=== PATIENT | male | born 1970 ===

== ENCOUNTER 2017-03-07 08:55 | Emergency (ER) | payer MEDICARE, OTHER ==
[2017-03-07 09:13] VITALS: TEMP 97.9
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
[2017-03-07] MEDS ORDERED: Bacitracin 500 Units/gm Oint Foilpak UD ONE (09:35)
--- NOTE | 2017-03-07 11:03 | CT ---
PROCEDURE: CT HEAD WITHOUT CONTRAST. HISTORY: TRAUMA COMPARISON: Comparison made with prior study 12/08/2015. . TECHNIQUE: Axial computed tomography images were obtained through the head/brain without intravenous contrast. Radiation dose: Total exam DLP = 936.64 mGy-cm. This CT exam was performed using one or more of the following dose reduction techniques: Automated exposure control, adjustment of the mA and/or kV according to patient size, and/or use of iterative reconstruction technique. FINDINGS: HEMORRHAGE: No acute parenchymal, subarachnoid or extra-axial hemorrhage. BRAIN: No evidence of large acute infarct. No obvious parenchymal nor extra-axial mass or collection seen on this noncontrast study. VENTRICLES: Unremarkable. No hydrocephalus. CALVARIUM: Calvarium is intact. There appears to be some mild left posterior superior parietal scalp swelling PARANASAL SINUSES: Mild mucoperiosteal inflammatory changes seen within the ethmoid air complex extending superiorly into the frontal sinus. . There is mild localized deviation of the nasal septum from right to left with a small bone spur along the left lateral margin of the nasal septum. MASTOID AIR CELLS: Unremarkable as visualized. No inflammatory changes. OTHER FINDINGS: None. IMPRESSION: No acute intracranial hemorrhage. There appears to be mild posterior superior parietal scalp swelling. Mild mucosal thickening seen within the ethmoid and frontal sinuses.
[2017-03-07 11:24] VITALS: BP 135/80; PULSE 81; RESP 18
[2017-03-07 12:53] VITALS: O2SAT 95
== END 2017-03-07 11:23 | disposition home or self-care (01) ==
LOC: C.ER 08:55
DX: S09.90XA Unspecified injury of head, initial encounter (principal); S00.01XA Abrasion of scalp, initial encounter; V19.9XXA Pedal cyclist (driver) (passenger) injured in unspecified traffic accident, initial encounter; Z72.0 Tobacco use

== ENCOUNTER 2017-06-16 10:56 | Emergency (ER) | payer MEDICARE, OTHER ==
[2017-06-16 11:00] VITALS: TEMP 98
--- NOTE | 2017-06-16 11:47 | C.PDOC ---
History Of Present Illness 46 year old male presents to the ED with complaints of shortness of breath and dizziness after eating for three days. Patient has a pacemaker that was placed in [place] but it is unclear why. He is certain he was found unconscious but it unsure regarding details of his past medical history. Patient note some lower back pain. He denies nausea, vomiting, LOC, head trauma, headache, fever, chills, or diarrhea. Time Seen by Provider: 06/16/17 11:32 Chief Complaint (Nursing): Shortness Of Breath History Per: Patient History/Exam Limitations: no limitations Onset/Duration Of Symptoms: Days (3 days ) Current Symptoms Are (Timing): Still Present Associated Symptoms: Dizziness. denies: Fever, Chills, Leg/Calf Pain Recent travel outside of the [place]: No Past Medical History Reviewed: Historical Data, Nursing Documentation, Vital Signs Vital Signs: Last Vital Signs Temp 98 F 06/16/17 10:59 Pulse 74 06/16/17 14:55 Resp 18 06/16/17 14:55 BP 121/87 06/16/17 14:55 Pulse Ox 96 06/16/17 15:10 - Medical History PMH: Asthma, CAD, COPD (ASTHMA), Fractures, Gastrointestinal Ulcer, Seizures Surgical History: Appendectomy, Pacemaker Family History: States: Unknown Family Hx - Social History Hx Tobacco Use: Yes Hx Alcohol Use: No Hx Substance Use: No - Immunization History Hx Tetanus Toxoid Vaccination: No Hx Influenza Vaccination: No Hx Pneumococcal Vaccination: No Review Of Systems Constitutional: Negative for: Fever, Chills Cardiovascular: Negative for: Chest Pain, Palpitations Respiratory: Positive for: Shortness of Breath. Negative for: Cough Physical Exam - Physical Exam Appears: Non-toxic, No Acute Distress Skin: Warm, Dry Head: Atraumatic, Normacephalic Eye(s): bilateral: Normal Inspection, PERRL, EOMI Oral Mucosa: Moist Neck: Supple Chest: Symmetrical, No Deformity, No Tenderness, Other (pacemaker at left upper chest wall ) Cardiovascular: Rhythm Regular, No Murmur Respiratory: Normal Breath Sounds, No Rales, No Rhonchi, No Wheezing Gastrointestinal/Abdominal: Soft, Tenderness (LLQ tenderness ), No Distention, No Guarding, No Rebound Back: No CVA Tenderness, No Vertebral Tenderness, No Paraspinal Tenderness Extremity: Normal ROM, No Tenderness, No Pedal Edema, No Calf Tenderness, Capillary Refill (good capillary refill, less than two seconds ), No Deformity, No Swelling Neurological/Psych: Oriented x3, Normal Speech, Normal Cognition, Normal Motor, Normal Sensation ED Course And Treatment - Laboratory Results Result Diagrams: 06/16/17 11:52 06/16/17 11:52 ECG: Interpreted By Me, Viewed By Me ECG Rhythm: Sinus Rhythm Interpretation Of ECG: No ST elevations or depressions Rate From EC O2 Sat by Pulse Oximetry: 96 (room air ) - Radiology CXR: Interpreted by Me, Viewed By Me CXR Interpretation: Yes: No Acute Disease Nexus Criteria: Negative Progress Note: EKG, CXR, UA, and blood work was ordered. Upon re-evaluation, patient states he is feeling fine and has agreed to follow up outpatient. Medical Decision Making Medical Decision Making: Labs wnl, Patient feeling well, will d/c Disposition Counseled Patient/Family Regarding: Studies Performed, Need For Followup, Rx Given - Disposition Disposition: HOME/ ROUTINE Disposition Time: 14:20 Condition: STABLE Additional Instructions: Follow up with your doctor as soon as possible. Return to the Emergency Department if symptoms persist. Prescriptions: Famotidine [Pepcid] 1 tab PO BID #30 tab Instructions: Gastritis (ED) Forms: Gen Discharge Inst Bruneian, [facility] (Bruneian) - POA Present On Arrival: None - Clinical Impression Clinical Impression: Gastritis - Scribe Statement The provider has reviewed the documentation as recorded by the Scribe Anahy Sanders All medical record entries made by the Scribe were at my direction and personally dictated by me. I have reviewed the chart and agree that the record accurately reflects my personal performance of the history, physical exam, medical decision making, and the department course for this patient. I have also personally directed, reviewed, and agree with the discharge instructions and disposition.
[2017-06-16 11:55] LABS: BASO # 0.1 K/uL (0.0-0.2); BASO % 1.2 % (0.0-2.0); EOS # 0.3 K/uL (0.0-0.7); HEMATOCRIT 47.5 % (35.0-51.0); LYMPH # 1.7 K/uL (1.0-4.3); LYMPH % 34.1 % (20.0-40.0); MEAN CELL VOLUME 88.9 fL (80.0-94.0); MEAN CORPUSCULAR HGB CONC 34.9 g/dL (33.0-37.0); MEAN PLATELET VOLUME 8.4 fL (7.2-11.7); MONO # 0.5 K/uL (0.0-0.8); MONO % 10.6 % (0.0-10.0); RED CELL DISTRIBUTION WIDTH 13.4 % (11.5-14.5)
[2017-06-16 12:07] LABS: ALB/GLOB RATIO 1.5 (1.0-2.1); ALKALINE PHOSPHATASE 57 U/L (38-126); ALT/SGPT 43 U/L (21-72); AST/SGOT 28 U/L (17-59); BILIRUBIN,TOTAL 0.5 mg/dL (0.2-1.3); BLOOD UREA NITROGEN 13 mg/dL (9-20); CALCIUM 9.5 mg/dl (8.6-10.4); CARBON DIOXIDE 30 mmol/L (22-30); CHLORIDE 98 mmol/L (98-107); GFR AFRICAN-AMERICAN > 60; GLUCOSE,RANDOM 78 mg/dL (75-110); POTASSIUM 4.3 mmol/L (3.6-5.2); SODIUM 140 mmol/L (132-148); TOTAL PROTEIN 7.3 g/dL (6.3-8.3)
[2017-06-16 12:37] LABS: RBC URINE < 1 /hpf (0-3); URINE BACTERIA OCC (<OCC); URINE BILIRUBIN NEGATIVE (NEGATIVE); URINE BLOOD NEGATIVE (NEGATIVE); URINE COLOR Yellow (YELLOW); URINE GLUCOSE (UA) NORMAL (Normal); URINE KETONE NEGATIVE (NEGATIVE); URINE LEUKOCYTE ESTERASE NEG Leu/uL (Negative); URINE PROTEIN NEGATIVE (NEGATIVE); URINE UROBILINOGEN NORMAL mg/dL (0.2-1.0); WBC URINE < 1 /hpf (0-5)
[2017-06-16 13:31] VITALS: RESP 18
--- NOTE | 2017-06-16 13:49 | RAD ---
PROCEDURE: CHEST RADIOGRAPH, 1 VIEW HISTORY: chest pain COMPARISON: Comparison is made to 10/24/2011 FINDINGS: LUNGS: No evidence of new infiltrate or consolidation in the lungs. PLEURA: No pneumothorax or pleural fluid seen. CARDIOVASCULAR: The cardiac silhouette is normal in size. Single wire left-sided pacemaker/ AICD is seen in place. OSSEOUS STRUCTURES: No significant abnormalities. VISUALIZED UPPER ABDOMEN: Normal. OTHER FINDINGS: None. IMPRESSION: No active disease.
[2017-06-16 14:56] VITALS: BP 121/87; PULSE 74
[2017-06-16 15:09] VITALS: O2SAT 96
--- NOTE | 2017-06-17 12:48 | CARD ---
APPROVED REPORT EKG Measurement Heart [id number] CO [id number] <Conclusion> Normal sinus rhythm Minimal voltage criteria for LVH, may be normal variant Borderline ECG
== END 2017-06-16 14:56 | disposition home or self-care (01) ==
LOC: C.ER 10:56
DX: K29.70 Gastritis, unspecified, without bleeding (principal)
CPT/HCPCS: 71010; 80053; 81001; 83880; 84484; 85025; 93005; 96374; 99285; G0480

== ENCOUNTER 2018-01-29 09:50 | Emergency (ER) | payer MEDICARE, MEDICAID ==
[2018-01-29 09:58] VITALS: RESP 18
[2018-01-29 11:03] VITALS: BP 107/78; PULSE 85; TEMP 98; O2SAT 95
--- NOTE | 2018-01-29 11:11 | RAD ---
HISTORY: Cough COMPARISON: Comparison chest 06/16/2017 TECHNIQUE: Chest PA and lateral FINDINGS: LUNGS: The interstitial markings are increased and coarsened within few scattered peribronchial cuffing changes. Findings could represent sequela of reactive/inflammatory airway disease or viral illness however the possibility of mild chronic compensated venous congestion not excluded. PLEURA: No significant pleural effusion identified. No pneumothorax apparent. CARDIOVASCULAR: Heart size normal. No change single lead pacemaker/ defibrillator OSSEOUS STRUCTURES: No significant abnormalities. VISUALIZED UPPER ABDOMEN: Normal. OTHER FINDINGS: None. IMPRESSION: The interstitial markings are increased and coarsened within few scattered peribronchial cuffing changes. Findings could represent sequela of reactive/inflammatory airway disease or viral illness however the possibility of mild chronic compensated venous congestion not excluded.
--- NOTE | 2018-01-29 15:54 | C.PDOC ---
History Of Present Illness 47 year old male presents to the ER with a complaint of diffuse lower back pain for the past 3 days, associated with dry cough and subjective fever. Denies chest pain, SOB, bladder/bowel incontinence, or saddle anesthesia. Chief Complaint (Nursing): Back Pain History Per: Patient History/Exam Limitations: no limitations Onset/Duration Of Symptoms: Days Current Symptoms Are (Timing): Still Present Quality Of Discomfort: Unable To Describe Previous Symptoms: None Associated Symptoms: None Exacerbating Factor(s): Nothing Recent travel outside of the [place]: No Past Medical History Reviewed: Historical Data, Nursing Documentation, Vital Signs Vital Signs: Last Vital Signs Temp 98.0 F 01/29/18 11:02 Pulse 85 01/29/18 11:02 Resp 18 01/29/18 11:02 BP 107/78 01/29/18 11:02 Pulse Ox 95 01/29/18 15:56 - Medical History PMH: Asthma, CAD, COPD (ASTHMA), Fractures, Gastrointestinal Ulcer, Seizures Surgical History: Appendectomy, Pacemaker Family History: States: Unknown Family Hx - Social History Hx Tobacco Use: Yes Hx Alcohol Use: No Hx Substance Use: No - Immunization History Hx Tetanus Toxoid Vaccination: No Hx Influenza Vaccination: No Hx Pneumococcal Vaccination: No Review Of Systems Constitutional: Positive for: Fever (Subjective) Cardiovascular: Negative for: Chest Pain Respiratory: Positive for: Cough. Negative for: Shortness of Breath Genitourinary: Negative for: Incontinence Musculoskeletal: Positive for: Back Pain Neurological: Negative for: Weakness, Numbness Physical Exam - Physical Exam Appears: Non-toxic, No Acute Distress Skin: Normal Color, Warm, Dry Head: Atraumatic, Normacephalic Eye(s): bilateral: Normal Inspection Ear(s): Bilateral: Normal Nose: Normal Oral Mucosa: Moist Throat: Normal, No Erythema, No Exudate Neck: Normal, Supple Chest: Symmetrical, No Tenderness Cardiovascular: Rhythm Regular Respiratory: Normal Breath Sounds, No Rales, No Rhonchi, No Wheezing Back: No Vertebral Tenderness, No Paraspinal Tenderness Neurological/Psych: Oriented x3, Normal Speech, Normal Motor, Normal Sensation ED Course And Treatment O2 Sat by Pulse Oximetry: 95 (Room air) Pulse Ox Interpretation: Normal Progress Note: CXR ordered. Disposition - Disposition Referrals: Laisha Quinones, [Non-Staff] - Disposition: HOME/ ROUTINE Disposition Time: 10:50 Condition: GOOD Additional Instructions: Thank you for letting us take care of you today. The emergency medical care you received today was directed at your acute symptoms. If you were prescribed any medication, please fill it and take as directed. It may take several days for your symptoms to resolve. Return to the Emergency Department if your symptoms worsen, do not improve, or if you have any other problems. Please contact your doctor or call one of the physicians/clinics you have been referred to that are listed on the Patient Visit Information form that is included in your discharge packet. Bring any paperwork you were given at discharge with you along with any medications you are taking to your follow up visit. Our treatment cannot replace ongoing medical care by a primary care provider (PCP) outside of the emergency department. Thank you for allowing the [facility] team to be part of your care today. Follow up with your doctor in 3-5 days for re-evaluation and further management. Prescriptions: Cyclobenzaprine [Cyclobenzaprine HCl] 10 mg PO Q8 PRN #20 tab PRN Reason: Muscle Spasm Ibuprofen [Motrin] 600 mg PO Q6 PRN #20 tab PRN Reason: Pain, Moderate (4-7) Instructions: Low Back Pain in Adults Forms: [employer] (Wallisian) - Clinical Impression Clinical Impression: Low back pain - Scribe Statement The provider has reviewed the documentation as recorded by the Scribe Nathaniel Garduno All medical record entries made by the Scribe were at my direction and personally dictated by me. I have reviewed the chart and agree that the record accurately reflects my personal performance of the history, physical exam, medical decision making, and the department course for this patient. I have also personally directed, reviewed, and agree with the discharge instructions and disposition.
== END 2018-01-29 11:25 | disposition home or self-care (01) ==
LOC: C.ER 09:50
DX: M54.5 Low back pain (principal)

== ENCOUNTER 2018-09-02 18:36 | Emergency (ER) | payer MEDICARE, MEDICAID ==
[2018-09-02 18:44] VITALS: BMI 28.4
[2018-09-02 18:53] VITALS: O2SAT 98
--- NOTE | 2018-09-02 19:53 | C.PDOC ---
History Of Present Illness 48 year old male presents to the ED c/o dizziness that started today. Patient now reports he feels much getter, no longer dizzy. Patient denies fever, chills, visual changes, headache, slurred speech, weakness, numbness, CP, SOB, nausea, vomit, rash, injury, fall, trauma. Time Seen by Provider: 09/02/18 19:52 Chief Complaint (Nursing): Dizziness/Lightheaded History Per: Patient History/Exam Limitations: no limitations Onset/Duration Of Symptoms: Days Current Symptoms Are (Timing): Still Present Activity At Onset Of Symptoms: Lying Associated Symptoms Preceding Syncopal Episode: No Predromal Symptoms (Sudden Onset) Seizure Or Post-ictal Symptoms: None Fall Associated With With Symptoms: No Severity: None Recent travel outside of the [place]: No Additional History Per: Patient Past Medical History Reviewed: Historical Data, Nursing Documentation, Vital Signs Vital Signs: Last Vital Signs Temp 98.4 F 09/02/18 18:45 Pulse 90 09/02/18 18:45 Resp 18 09/02/18 18:45 BP 130/88 09/02/18 18:45 Pulse Ox 98 09/02/18 18:45 - Medical History PMH: Asthma, CAD, COPD, Fractures, Gastrointestinal Ulcer, Hypercholesterolemia, Seizures (JUVENILE) Surgical History: Appendectomy, Pacemaker (LEFT CHEST WALL) Family History: States: Unknown Family Hx - Social History Hx Tobacco Use: Yes Hx Alcohol Use: No Hx Substance Use: No - Immunization History Hx Tetanus Toxoid Vaccination: No Hx Influenza Vaccination: No Hx Pneumococcal Vaccination: No Review Of Systems Constitutional: Negative for: Fever, Chills Cardiovascular: Negative for: Chest Pain Respiratory: Negative for: Cough, Shortness of Breath Gastrointestinal: Negative for: Nausea, Vomiting, Abdominal Pain Skin: Negative for: Rash Neurological: Negative for: Weakness, Numbness, Headache, Dizziness Physical Exam - Physical Exam Appears: Non-toxic, No Acute Distress Skin: Warm, Dry Head: Normacephalic Eye(s): bilateral: Normal Inspection, PERRL, EOMI, Other (no nystagmus) Oral Mucosa: Moist Neck: Supple Chest: Symmetrical Cardiovascular: Rhythm Regular Respiratory: No Rales, No Rhonchi, No Wheezing Gastrointestinal/Abdominal: Soft, No Tenderness, No Guarding, No Rebound Extremity: Normal ROM Extremity: Bilateral: Atraumatic, Normal Color And Temperature, Normal ROM Neurological/Psych: Oriented x3, Normal Speech, Normal Cognition, Normal Motor, Normal Sensation, Romberg (negative), Other (non focal) Gait: Steady ED Course And Treatment ECG: Interpreted By Me, Viewed By Me ECG Rhythm: Sinus Rhythm (87), Nonspecific Changes O2 Sat by Pulse Oximetry: 98 (ON RA) Pulse Ox Interpretation: Normal - Radiology CXR: Interpreted by Me, Viewed By Me Progress Note: Patient refused labs, work up. wants to be D/C Against Medical Advice - AMA Patient Left Against Medical Advice: The patient declines admission to the hospital and wishes to leave the Emergency Department. This action is against my medical advice. This decision was made with informed refusal. The patient was told that admission to the hospital is necessary. Explanation of the reasons why were discussed. The risks of leaving were explained to the patient and include, but are not limited to, worsening of known or currently unknown conditions, permanent disability and from undiagnosed or untreated conditions. The patient has the capacity to make this informed decision and understands my explanation of the current medical problem and risks of leaving. The patient voluntarily accepts these risks and signed an AMA form documenting our conversation. The patient was given the opportunity to ask questions and reconsider. The patient was encouraged to return to the Emergency Department at any time for further care. Disposition Counseled Patient/Family Regarding: Studies Performed, Diagnosis, Need For Followup, Rx Given - Disposition Referrals: [facility] [Outside] [facility] [Outside] Disposition: AGAINST MEDICAL ADVICE Disposition Time: 19:53 Condition: FAIR Additional Instructions: Please return if symptoms recur Prescriptions: Meclizine [Antivert] 25 mg PO TID #21 tab Instructions: Vertigo (a Type of Dizziness) Forms: [employer] (Andorran) Print Language: LATVIAN - Clinical Impression Clinical Impression: Dizziness - Scribe Statement The provider has reviewed the documentation as recorded by the Scribe Darrel Glez All medical record entries made by the Scribe were at my direction and personally dictated by me. I have reviewed the chart and agree that the record accurately reflects my personal performance of the history, physical exam, medical decision making, and the department course for this patient. I have also personally directed, reviewed, and agree with the discharge instructions and disposition.
[2018-09-02 20:33] VITALS: BP 122/84; PULSE 82; RESP 16; TEMP 98.8
[2018-09-02 20:40] LABS: URINE BILIRUBIN NEGATIVE (NEGATIVE); URINE BLOOD NEGATIVE (NEGATIVE); URINE CLARITY Clear (Clear); URINE COLOR Yellow (YELLOW); URINE GLUCOSE (UA) NORMAL (Normal); URINE LEUKOCYTE ESTERASE NEG Leu/uL (Negative); URINE PROTEIN NEGATIVE (NEGATIVE); URINE UROBILINOGEN NORMAL mg/dL (0.2-1.0)
== END 2018-09-02 20:33 | disposition left against medical advice (07) ==
LOC: C.ER 18:36
DX: R42 Dizziness and giddiness (principal); I25.10 Atherosclerotic heart disease of native coronary artery without angina pectoris; J44.9 Chronic obstructive pulmonary disease, unspecified; E78.00 Pure hypercholesterolemia, unspecified; Z95.0 Presence of cardiac pacemaker; F17.210 Nicotine dependence, cigarettes, uncomplicated

== ENCOUNTER 2018-11-19 13:54 | Emergency (ER) | payer MEDICARE, MEDICAID ==
[2018-11-19 13:54] VITALS: BMI 28.4
[2018-11-19 14:06] VITALS: TEMP 97.9
[2018-11-19] MEDS ORDERED: Sodium Chloride 0.9% 1,000 ML IV STA (15:05)
[2018-11-19] MEDS ORDERED: SODIUM CHLORIDE 0.9% IV STA (15:05)
[2018-11-19] MEDS ORDERED: LIDOCAINE IV STA (15:05)
--- NOTE | 2018-11-19 15:05 | C.PDOC ---
History Of Present Illness 48 year old male presents to the ED for evaluation of intermittent left flank and LLQ pain for 3 days. Denies fever, chills, hematuria, and any other associated symptoms. PMHx: (-) renal colic. (-) chronic back pain. L FLANK/LLQ PAIN X 3 DAYS. INTERMIT. NO FEVER, NV, HEMATURIA . DENIES PRIOR HO RENAL COLIC. DENIES HO CHRONIC BACK PAIN EXAM MILD DIST NONTOXIC ABD NEG NO CVAT REMIANDER NEG Time Seen by Provider: 11/19/18 14:49 Chief Complaint (Nursing): Male Genitourinary History Per: Patient History/Exam Limitations: no limitations Onset/Duration Of Symptoms: Days (x3) Current Symptoms Are (Timing): Still Present Location Of Pain/Discomfort: LLQ, Other (left flank pain. ) Recent travel outside of the [place]: No Past Medical History Reviewed: Historical Data, Nursing Documentation, Vital Signs Vital Signs: Last Vital Signs Temp 97.9 F 11/19/18 14:02 Pulse 99 H 11/19/18 14:02 Resp 20 11/19/18 14:02 BP 141/77 11/19/18 14:02 Pulse Ox 97 11/19/18 14:02 - Medical History PMH: Asthma, CAD, COPD, Fractures, Gastrointestinal Ulcer, Hypercholesterolemia, Seizures (JUVENILE) Surgical History: Appendectomy, Pacemaker (LEFT CHEST WALL) Family History: States: Unknown Family Hx - Social History Hx Tobacco Use: Yes Hx Alcohol Use: No Hx Substance Use: No - Immunization History Hx Tetanus Toxoid Vaccination: No Hx Influenza Vaccination: No Hx Pneumococcal Vaccination: No Review Of Systems Except As Marked, All Systems Reviewed And Found Negative. Constitutional: Negative for: Fever, Chills Gastrointestinal: Positive for: Abdominal Pain (LLQ + Left flank pain. ). Negative for: Other ((-) hematuria.) Physical Exam - Physical Exam Appears: Non-toxic, Other (mild distress. ) Skin: Warm, Dry Head: Atraumatic, Normacephalic Eye(s): bilateral: Normal Inspection Oral Mucosa: Moist Neck: Normal ROM Chest: Symmetrical, No Deformity Cardiovascular: Rhythm Regular, No Murmur Respiratory: Normal Breath Sounds, No Rales, No Rhonchi, No Wheezing, No Other (NARD) Gastrointestinal/Abdominal: Normal Exam, Soft, No Tenderness Back: No CVA Tenderness, No Other ((-) CVAT.) Extremity: Bilateral: Atraumatic, Normal Color And Temperature Neurological/Psych: Oriented x3, Normal Speech, Normal Cognition ED Course And Treatment - Laboratory Results Result Diagrams: 11/19/18 16:10 11/19/18 16:10 O2 Sat by Pulse Oximetry: 97 (RA) Pulse Ox Interpretation: Normal - CT Scan/US CT ABD/Pelvis Other Rad Studies (CT/US): Read By Radiologist CT/US Interpretation: FINDINGS: LOWER THORAX: Unremarkable. LIVER: Unremarkable. No gross lesion or ductal dilatation. GALLBLADDER AND BILE DUCTS: Unremarkable. PANCREAS: Unremarkable. No gross lesion or ductal dilatation. SPLEEN: Unremarkable. ADRENALS: Unremarkable. No mass. KIDNEYS AND URETERS: Unremarkable. No hydronephrosis. No solid mass. VASCULATURE: Unremarkable. No aortic aneurysm. Mild atherosclerotic calcification noted in the aorta and iliac arteries. BOWEL: Unremarkable. No obstruction. No gross mural thickening. APPENDIX: Unremarkable. Normal appendix. PERITONEUM: Unremarkable. No free fluid. No free air. LYMPH NODES: Unremarkable. No enlarged lymph nodes. BLADDER: Unremarkable. REPRODUCTIVE: Unremarkable. BONES: No acute fracture. OTHER FINDINGS: None. IMPRESSION: No CT evidence of acute pathology in the abdomen and pelvis. Reevaluation Time: 17:18 Reassessment Condition: Improved Medical Decision Making Medical Decision Making: Initial plan: -CT ABD/PELVIS w/o PO or IV Contrast -Blood sent -Flomax -Lidocaine Progress/Update: Patient stable for discharge home. Prescribed Motrin and advised to return to the ED if symptoms worsen. Disposition Counseled Patient/Family Regarding: Studies Performed, Diagnosis, Need For Followup, Rx Given - Disposition Referrals: [facility] [Outside] [facility] [Outside] Disposition: HOME/ ROUTINE Disposition Time: 17:18 Condition: IMPROVED Prescriptions: Ibuprofen [Motrin] 600 mg PO Q6 #30 tab Instructions: Low Back Pain (DC), Acute Abdomen (Belly Pain), Adult (DC) Forms: [facility] (Mongolian) - Clinical Impression Clinical Impression: Low back pain, Abdominal pain - Scribe Statement The provider has reviewed the documentation as recorded by the Scribe (Genna Graf) Provider Attestation: All medical record entries made by the Scribe were at my direction and personally dictated by me. I have reviewed the chart and agree that the record accurately reflects my personal performance of the history, physical exam, medical decision making, and the department course for this patient. I have also personally directed, reviewed, and agree with the discharge instructions and disposition.
[2018-11-19 15:39] LABS: URINE AMORPHOUS SEDIMENT RARE /ul (<OCC); URINE BACTERIA RARE (<OCC); URINE BILIRUBIN NEGATIVE (NEGATIVE); URINE BLOOD NEGATIVE (NEGATIVE); URINE CLARITY Hazy (Clear); URINE COLOR Yellow (YELLOW); URINE GLUCOSE (UA) NORMAL (Normal); URINE LEUKOCYTE ESTERASE NEG Leu/uL (Negative); URINE PROTEIN NEGATIVE (NEGATIVE); URINE UROBILINOGEN NORMAL mg/dL (0.2-1.0)
[2018-11-19] MEDS ORDERED: Sodium Chloride 0.9% 1,000 ML ONE (15:55)
[2018-11-19 16:16] LABS: BASO % 0.8 % (0.0-2.0); EOS # 0.2 K/uL (0.0-0.7); HEMOGLOBIN 15.4 g/dL (12.0-18.0); LYMPH # 2.1 K/uL (1.0-4.3); LYMPH % 34.3 % (20.0-40.0); MEAN CELL VOLUME 90.9 fL (80.0-94.0); MEAN CORPUSCULAR HEMOGLOBIN 29.9 pg (27.0-31.0); MEAN CORPUSCULAR HGB CONC 32.8 g/dL (33.0-37.0); MEAN PLATELET VOLUME 8.6 fL (7.2-11.7); MONO # 0.5 K/uL (0.0-0.8); MONO % 7.9 % (0.0-10.0); NEUT # 3.3 K/uL (1.8-7.0); RBC 5.17 Mil/uL (4.40-5.90); RED CELL DISTRIBUTION WIDTH 13.9 % (11.5-14.5); WHITE BLOOD COUNT 6.2 K/uL (4.8-10.8)
--- NOTE | 2018-11-19 16:24 | CT ---
Date of service: 11/19/2018 PROCEDURE: CT Abdomen and Pelvis without intravenous contrast HISTORY: L FLANK/LLQ PAIN COMPARISON: Comparison is made to the previous study dated 01/08/2015 TECHNIQUE: Axial and reformatted coronal and sagittal CT images of the abdomen and pelvis were obtained without IV or oral contrast administration.. Contrast dose: 0 Radiation dose: Total exam DLP = 711.28 mGy-cm. This CT exam was performed using one or more of the following dose reduction techniques: Automated exposure control, adjustment of the mA and/or kV according to patient size, and/or use of iterative reconstruction technique. FINDINGS: LOWER THORAX: Unremarkable. LIVER: Unremarkable. No gross lesion or ductal dilatation. GALLBLADDER AND BILE DUCTS: Unremarkable. PANCREAS: Unremarkable. No gross lesion or ductal dilatation. SPLEEN: Unremarkable. ADRENALS: Unremarkable. No mass. KIDNEYS AND URETERS: Unremarkable. No hydronephrosis. No solid mass. VASCULATURE: Unremarkable. No aortic aneurysm. Mild atherosclerotic calcification noted in the aorta and iliac arteries. BOWEL: Unremarkable. No obstruction. No gross mural thickening. APPENDIX: Unremarkable. Normal appendix. PERITONEUM: Unremarkable. No free fluid. No free air. LYMPH NODES: Unremarkable. No enlarged lymph nodes. BLADDER: Unremarkable. REPRODUCTIVE: Unremarkable. BONES: No acute fracture. OTHER FINDINGS: None. IMPRESSION: No CT evidence of acute pathology in the abdomen and pelvis.
[2018-11-19 16:26] LABS: ALB/GLOB RATIO 1.8 (1.0-2.1); ALBUMIN 4.4 g/dL (3.5-5.0); ALT/SGPT 23 U/L (21-72); AST/SGOT 25 U/L (17-59); BLOOD UREA NITROGEN 14 mg/dL (9-20); CALCIUM 8.9 mg/dl (8.6-10.4); GFR NON-AFRICAN AMERICAN > 60; LIPASE 84 U/L (23-300)
[2018-11-19 16:40] VITALS: BP 115/84; PULSE 74; RESP 18
[2018-11-19 17:22] VITALS: O2SAT 97
== END 2018-11-19 17:38 | disposition home or self-care (01) ==
LOC: C.ER 13:54
DX: R10.32 Left lower quadrant pain (principal); M54.5 Low back pain; E78.00 Pure hypercholesterolemia, unspecified; J44.9 Chronic obstructive pulmonary disease, unspecified; I25.10 Atherosclerotic heart disease of native coronary artery without angina pectoris; Z72.0 Tobacco use
CPT/HCPCS: 74176; 80053; 81001; 83690; 85025; 96374; 99284; J1885; J2001; J7030

== ENCOUNTER 2018-11-20 11:01 | Observation (INO) | payer MEDICARE, MEDICAID ==
[2018-11-20 11:02] VITALS: BMI 28.4
[2018-11-20 12:01] LABS: BASO % 0.8 % (0.0-2.0); EOS # 0.2 K/uL (0.0-0.7); EOS % 3.9 % (0.0-4.0); HEMOGLOBIN 15.2 g/dL (12.0-18.0); LYMPH # 1.6 K/uL (1.0-4.3); MEAN CELL VOLUME 90.8 fL (80.0-94.0); MEAN CORPUSCULAR HEMOGLOBIN 30.4 pg (27.0-31.0); MEAN CORPUSCULAR HGB CONC 33.4 g/dL (33.0-37.0); MEAN PLATELET VOLUME 8.7 fL (7.2-11.7); MONO # 0.5 K/uL (0.0-0.8); MONO % 8.8 % (0.0-10.0); NEUT # 2.9 K/uL (1.8-7.0); NEUT % 55.5 % (50.0-75.0); RBC 4.99 Mil/uL (4.40-5.90); WHITE BLOOD COUNT 5.2 K/uL (4.8-10.8)
[2018-11-20 12:11] LABS: PROTHROMBIN TIME 11.2 SECONDS (9.7-12.2)
[2018-11-20 12:23] LABS: ALBUMIN 4.2 g/dL (3.5-5.0); ALT/SGPT 23 U/L (21-72); AST/SGOT 21 U/L (17-59); BLOOD UREA NITROGEN 12 mg/dL (9-20); CALCIUM 8.4 mg/dl (8.6-10.4); GFR NON-AFRICAN AMERICAN > 60
[2018-11-20 12:38] LABS: B-TYPE NATRIURETIC PEPTIDE 111 pg/mL (0-900)
[2018-11-20] MEDS ORDERED: Morphine 4 MG/ML VIAL IV STA (12:50)
[2018-11-20] MEDS ORDERED: Morphine 4 MG/ML VIAL ONE (12:58)
--- NOTE | 2018-11-20 12:58 | C.PDOC ---
History Of Present Illness 48 year old male presents to ED with complaint of mid-sternal chest pain associated with diffuse abdominal pain since last night. He states that the chest pain is associated with slight SOB. Patient describes the pain as intermittent. He denies nausea, vomiting, diarrhea, and GI bleeding. Time Seen by Provider: 11/20/18 11:27 Chief Complaint (Nursing): Chest Pain History Per: Patient History/Exam Limitations: no limitations Onset/Duration Of Symptoms: Days (1), Intermittent Episodes Current Symptoms Are (Timing): Still Present Quality: "Pain" Associated Symptoms: Other (SOB). denies: Nausea Past Medical History Reviewed: Historical Data, Nursing Documentation, Vital Signs Vital Signs: Last Vital Signs Temp 97.9 F 11/20/18 11:07 Pulse 84 11/20/18 11:07 Resp 20 11/20/18 11:07 BP 131/83 11/20/18 11:07 Pulse Ox 98 11/20/18 11:07 - Medical History PMH: Asthma, CAD, COPD, Fractures, Gastrointestinal Ulcer, Hypercholesterolemia, Seizures (JUVENILE) Surgical History: Appendectomy, Pacemaker (LEFT CHEST WALL) Family History: States: Unknown Family Hx - Social History Hx Tobacco Use: Yes Hx Alcohol Use: No Hx Substance Use: No - Immunization History Hx Tetanus Toxoid Vaccination: No Hx Influenza Vaccination: No Hx Pneumococcal Vaccination: No Review Of Systems Constitutional: Negative for: Fever, Chills, Weakness Cardiovascular: Positive for: Chest Pain (mid-sternal chest pain). Negative for: Palpitations Respiratory: Positive for: Shortness of Breath. Negative for: Cough Gastrointestinal: Positive for: Abdominal Pain. Negative for: Nausea, Vomiting, Diarrhea Neurological: Negative for: Weakness, Numbness, Dizziness Physical Exam - Physical Exam Appears: Well, Non-toxic, No Acute Distress Skin: Normal Color, Warm, Dry, No Rash Head: Atraumatic, Normacephalic Eye(s): bilateral: Normal Inspection, PERRL, EOMI Oral Mucosa: Moist Throat: No Erythema, No Exudate Neck: Normal ROM, Supple Chest: Symmetrical, No Deformity, No Tenderness, Other (pacemaker in left upper chest) Cardiovascular: Rhythm Regular, No Friction Rub, No Murmur Respiratory: No Accessory Muscle Use, No Rales, No Rhonchi, No Stridor, No Wheezing Gastrointestinal/Abdominal: Bowel Sounds (active), Soft, Tenderness (mild tenderness in lower abdomen) Back: Normal Inspection, No CVA Tenderness Extremity: Capillary Refill (<2 seconds'), No Swelling Extremity: Bilateral: Atraumatic, Normal Color And Temperature Pulses: Left Radial: Normal, Right Radial: Normal Neurological/Psych: Oriented x3, Normal Speech, Normal Cognition ED Course And Treatment - Laboratory Results Result Diagrams: 11/20/18 11:55 11/20/18 11:55 Lab Results: PT 11.2 SECONDS (9.7-12.2) 11/20/18 11:55 INR 1.0 11/20/18 11:55 APTT 32 SECONDS (21-34) 11/20/18 11:55 Troponin I < 0.0120 ng/mL (0.00-0.120) 11/20/18 11:55 NT-Pro-B Natriuret Pep 111 pg/mL (0-900) 11/20/18 11:55 Total Bilirubin 0.3 mg/dL (0.2-1.3) 11/20/18 11:55 AST 21 U/L (17-59) 11/20/18 11:55 ALT 23 U/L (21-72) 11/20/18 11:55 Alkaline Phosphatase 64 U/L (38-126) 11/20/18 11:55 Total Protein 6.3 g/dL (6.3-8.3) 11/20/18 11:55 Albumin 4.2 g/dL (3.5-5.0) 11/20/18 11:55 Globulin 2.1 gm/dL (2.2-3.9) L 11/20/18 11:55 Albumin/Globulin Ratio 2.0 (1.0-2.1) 11/20/18 11:55 ECG: Interpreted By Me, Viewed By Me ECG Rhythm: Sinus Rhythm ECG Interpretation: Normal Interpretation Of ECG: Normal ST/T waves. Normal axis. Rate From EC O2 Sat by Pulse Oximetry: 98 (on RA) Pulse Ox Interpretation: Normal - Other Rad CXR X-Ray: Interpreted by Me, Viewed By Me Interpretation: Accession No. : [id number]. Patient Name / ID : MARYELLEN KEARNEY / [id number]. Exam Date : 11/20/2018 11:47:21 ( Approved ). Study Comment : Sex / Age : M / 48Y. Creator : Maxwell Hernandez MD. Dictator : Maxwell Hernandez MD. Atmospheric Chemist : Palliative Care Specialist : Maxwell Hernandez MD. Approver2 : Report Date : 11/20/2018 13:08:56. My Comment : * . Date of service: 11/20/2018. PROCEDURE: CHEST RADIOGRAPH, 1 VIEW. HISTORY: chest pain. COMPARISON: Comparison is made with 01/29/2018. FINDINGS: LUNGS: No evidence of new infiltrate or consolidation in the lungs. PLEURA: No pneumothorax or pleural fluid seen. CARDIOVASCULAR: No aortic atherosclerotic calcification present. Again noted is single wire pacing on the left side of the chest. OSSEOUS STRUCTURES: No significant abnormalities. VISUALIZED UPPER ABDOMEN: Normal. OTHER FINDINGS: None. IMPRESSION: No significant interval changes. - CT Scan/US CT Abdomen/Pelvis Other Rad Studies (CT/US): Interpreted By Me, Read By Radiologist CT/US Interpretation: Accession No. : [id number]. Patient Name / ID : MARYELLEN KEARNEY / [id number]. Exam Date : 11/20/2018 13:18:22 ( Approved ). Study Comment : Sex / Age : M / 48Y. Exam Date : 11/20/2018 13:18:22 ( Approved ). Study Comment : Sex / Age : M / 48Y. Creator : Maxwell Hernandez MD. Dictator : Maxwell Hernandez MD. Atmospheric Chemist : Palliative Care Specialist : Maxwell Hernandez MD. Approver2 : Report Date : 11/20/2018 14:06:51. My Comment : . Date of service: 11/20/2018. PROCEDURE: CT Abdomen and Pelvis with contrast. HISTORY: diffuse abd pain. COMPARISON: Comparison is made with 11/19/2018. TECHNIQUE: Contrast dose: 100 mL of Omnipaque 300 intravenously. Axial and reformatted coronal and sagittal CT images of the abdomen and pelvis were obtained after IV contrast administration. Radiation dose: Total exam DLP = 470.44 mGy-cm. This CT exam was performed using one or more of the following dose reduction techniques: Automated exposure control, adjustment of the mA and/or kV according to patient size, and/or use of iterative reconstruction tech nique. FINDINGS: LOWER THORAX: No evidence of acute pathology at the lung bases. No evidence of pleural effusion or pericardial effusion. Wire seen extending to the right heart. LIVER: No evidence of acute pathology or suspicious mass in the liver. GALLBLADDER AND BILE DUCTS: No evidence of acute cholecystitis. PANCREAS: Unremarkable. No gross lesion or ductal dilatation. SPLEEN: Unremarkable. ADRENALS: Unremarkable. No mass. KIDNEYS AND URETERS: Unremarkable. No hydronephrosis. No solid mass. VASCULATURE: No evidence of aortic aneurysm. Small calcification noted in the abdominal aorta. BOWEL: There are scattered large diverticula in the large bowel. No definite evidence of acute diverticulitis. No evidence of high-grade bowel obstruction. APPENDIX: No evidence of appendicitis. PERITONEUM: Unremarkable. No free fluid. No free air. LYMPH NODES: Unremarkable. No enlarged lymph nodes. BLADDER: Unremarkable. REPRODUCTIVE: The prostate is mildly to moderately enlarged. BONES: No acute fracture. OTHER FINDINGS: None. IMPRESSION: No CT evidence of cholecystitis pancreatitis or appendicitis. Scattered large colonic diverticula without evidence diverticulitis. Progress Note: CT Abdomen/Pelvis, EKG, and CXR ordered for patient. Labs ordered with troponin for patient. Patient given Morphine IV, Pepcid IVP, Zofran IVP. Medical Decision Making Medical Decision Making: The case was discussed with Dr. Powers (internal medicine) who agrees to admit the patient for Tele OBS. Disposition - Disposition Disposition: HOSPITALIZED Disposition Time: 15:00 Condition: STABLE - Clinical Impression Clinical Impression: Chest pain, Abdominal pain - PA / TREE TRIMMING SUPERVISOR / Resident Statement MD/DO has reviewed & agrees with the documentation as recorded. (Regina Tafoya) - Scribe Statement The provider has reviewed the documentation as recorded by the Scribe (Regina Tafoya) All medical record entries made by the Scribe were at my direction and personally dictated by me. I have reviewed the chart and agree that the record accurately reflects my personal performance of the history, physical exam, medical decision making, and the department course for this patient. I have also personally directed, reviewed, and agree with the discharge instructions and disposition.
[2018-11-20] MEDS ORDERED: Iohexol 300 100 ML IJ ONE (13:04)
--- NOTE | 2018-11-20 13:12 | RAD ---
Date of service: 11/20/2018 PROCEDURE: CHEST RADIOGRAPH, 1 VIEW HISTORY: chest pain COMPARISON: Comparison is made with 01/29/2018 FINDINGS: LUNGS: No evidence of new infiltrate or consolidation in the lungs. PLEURA: No pneumothorax or pleural fluid seen. CARDIOVASCULAR: No aortic atherosclerotic calcification present. Again noted is single wire pacing on the left side of the chest OSSEOUS STRUCTURES: No significant abnormalities. VISUALIZED UPPER ABDOMEN: Normal. OTHER FINDINGS: None. IMPRESSION: No significant interval changes.
--- NOTE | 2018-11-20 14:10 | CT ---
Date of service: 11/20/2018 PROCEDURE: CT Abdomen and Pelvis with contrast HISTORY: diffuse abd pain COMPARISON: Comparison is made with 11/19/2018 TECHNIQUE: Contrast dose: 100 mL of Omnipaque 300 intravenously. Axial and reformatted coronal and sagittal CT images of the abdomen and pelvis were obtained after IV contrast administration Radiation dose: Total exam DLP = 470.44 mGy-cm. This CT exam was performed using one or more of the following dose reduction techniques: Automated exposure control, adjustment of the mA and/or kV according to patient size, and/or use of iterative reconstruction technique. FINDINGS: LOWER THORAX: No evidence of acute pathology at the lung bases. No evidence of pleural effusion or pericardial effusion. Wire seen extending to the right heart. LIVER: No evidence of acute pathology or suspicious mass in the liver. GALLBLADDER AND BILE DUCTS: No evidence of acute cholecystitis. PANCREAS: Unremarkable. No gross lesion or ductal dilatation. SPLEEN: Unremarkable. ADRENALS: Unremarkable. No mass. KIDNEYS AND URETERS: Unremarkable. No hydronephrosis. No solid mass. VASCULATURE: No evidence of aortic aneurysm. Small calcification noted in the abdominal aorta. BOWEL: There are scattered large diverticula in the large bowel. No definite evidence of acute diverticulitis. No evidence of high-grade bowel obstruction APPENDIX: No evidence of appendicitis PERITONEUM: Unremarkable. No free fluid. No free air. LYMPH NODES: Unremarkable. No enlarged lymph nodes. BLADDER: Unremarkable. REPRODUCTIVE: The prostate is mildly to moderately enlarged. BONES: No acute fracture. OTHER FINDINGS: None. IMPRESSION: No CT evidence of cholecystitis pancreatitis or appendicitis. Scattered large colonic diverticula without evidence diverticulitis.
[2018-11-20] MEDS ORDERED: Albuterol HFA 90 mcg/actuation (8 g) INH PRN (16:47)
[2018-11-21 02:56] LABS: CK-MB 0.61 ng/mL (0.0-3.38)
--- NOTE | 2018-11-21 09:33 | CP.PCM.CON ---
History of Present Illness - History of Present Illness History of Present Illness: Washington Garcia PGY1, Cardio consult note for Dr Messer Pt is a 48 yo male with a PMH of having a pacemaker, 2 cardiac stents, and tobacco abuse presents to the emergency department complaining of 7/10 substernal chest pain which began earlier that day. Pt denies radiation of the pain to his arms or jaw. The pain is intermittent. Pt states that the pain is not pleuritc, and does relieved with position changes. A 12 point ROS was obtained and added to the HPI where appropriate. Past Patient History - Infectious Disease Hx of Infectious Diseases: None - Past Medical History & Family History Past Medical History?: Yes - Past Social History Smoking Status: Light Smoker < 10 Cigarettes Daily - CARDIAC Hx Hypercholesterolemia: Yes Hx Pacemaker: Yes (LEFT CHEST WALL) - PULMONARY Hx Asthma: Yes Hx Chronic Obstructive Pulmonary Disease (COPD): Yes - NEUROLOGICAL Hx Seizures: Yes (JUVENILE) - HEENT Hx HEENT Problems: No Other/Comment: Wears reading glasses - ENDOCRINE/METABOLIC Hx Endocrine Disorders: No - HEMATOLOGICAL/ONCOLOGICAL Hx Blood Disorders: No - INTEGUMENTARY Hx Dermatological Problems: No - MUSCULOSKELETAL/RHEUMATOLOGICAL Hx Fractures: Yes - GASTROINTESTINAL Hx Gastrointestinal Disorders: Yes - GENITOURINARY/GYNECOLOGICAL Hx Genitourinary Disorders: No - PSYCHIATRIC Hx Substance Use: No - SURGICAL HISTORY Hx Appendectomy: Yes - ANESTHESIA Hx Anesthesia: Yes Hx Anesthesia Reactions: No Meds Allergies/Adverse Reactions: Allergies Allergy/AdvReac Type Severity Reaction Status Date / Time No Known Allergies Allergy Verified 11/20/18 11:10 - Medications Medications: Current Medications Albuterol (Ventolin Hfa 90 Mcg/Actuation (8 G)) 1 puff INH RQ6 PRN PRN Reason: Shortness of Breath Aspirin (Ecotrin) 81 mg PO DAILY [facility] Carvedilol (Coreg) 3.125 mg PO Q12H [facility] Last Admin: 11/20/18 18:22 Dose: 3.125 mg Cyclobenzaprine HCl (Flexeril) 10 mg PO Q8 PRN PRN Reason: Muscle spasm Enoxaparin Sodium (Lovenox) 40 mg SC DAILY [facility] Ibuprofen (Motrin Tab) 600 mg PO Q6 PRN PRN Reason: Pain, moderate (4-7) Lisinopril (Zestril) 5 mg PO DAILY [facility] Meclizine HCl (Antivert) 25 mg PO TID PRN PRN Reason: Dizziness Montelukast Sodium (Singulair) 10 mg PO HS [facility] Pantoprazole Sodium (Protonix Ec Tab) 20 mg PO DAILY [facility] Pantoprazole Sodium (Protonix Ec Tab) 20 mg PO DAILY [facility] Pneumococcal Polyvalent Vaccine (Pneumovax 23 Vaccine) 0.5 ml IM .ONCE ONE Stop: 11/21/18 10:01 Rosuvastatin Calcium (Crestor) 5 mg PO HS [facility] Last Admin: 11/20/18 22:40 Dose: 5 mg Physical Exam - Constitutional Appears: No Acute Distress - Head Exam Head Exam: ATRAUMATIC, NORMOCEPHALIC - Eye Exam Eye Exam: EOMI - ENT Exam ENT Exam: Mucous Membranes Moist - Respiratory Exam Respiratory Exam: Clear to Auscultation Bilateral, NORMAL BREATHING PATTERN. absent: Accessory Muscle Use, Respiratory Distress - Cardiovascular Exam Cardiovascular Exam: RRR, +S1, +S2. absent: Diastolic murmur, Systolic Murmur - GI/Abdominal Exam GI & Abdominal Exam: Soft. absent: Tenderness - Extremities Exam Extremities exam: Positive for: full ROM, normal inspection. Negative for: calf tenderness, pedal edema - Neurological Exam Neurological exam: Alert, Oriented x3 - Psychiatric Exam Psychiatric exam: Normal Affect, Normal Mood - Skin Skin Exam: Dry, Normal Color, Warm Results - Vital Signs Recent Vital Signs: Last Vital Signs Temp 97.9 F 11/21/18 07:30 Pulse 61 11/21/18 07:30 Resp 20 11/21/18 07:30 BP 124/83 11/21/18 07:30 Pulse Ox 95 11/21/18 07:30 - Labs Result Diagrams: 11/21/18 11:29 11/21/18 11:29 Labs: Laboratory Results - last 24 hr 11/20/18 11/20/18 11/20/18 11:55 11:55 11:55 WBC 5.2 RBC 4.99 Hgb 15.2 Hct 45.3 MCV 90.8 MCH 30.4 MCHC 33.4 RDW 14.0 Plt Count 205 MPV 8.7 Neut % (Auto) 55.5 Lymph % (Auto) 31.0 Cataño % (Auto) 8.8 Eos % (Auto) 3.9 Baso % (Auto) 0.8 Neut # (Auto) 2.9 Lymph # (Auto) 1.6 [place]ata[place] # (Auto) 0.5 Eos # (Auto) 0.2 Baso # (Auto) 0.0 PT 11.2 INR 1.0 APTT 32 Sodium 133 Potassium 4.0 Chloride 102 Carbon Dioxide 26 Anion Gap 9 L BUN 12 Creatinine 0.5 L Est GFR ( Amer) > 60 Est GFR (Non-Af Amer) > 60 Random Glucose 93 Calcium 8.4 L Total Bilirubin 0.3 AST 21 ALT 23 Alkaline Phosphatase 64 Total Creatine Kinase CK-MB (Mass) Troponin I < 0.0120 NT-Pro-B Natriuret Pep 111 Total Protein 6.3 Albumin 4.2 Globulin 2.1 L Albumin/Globulin Ratio 2.0 11/20/18 11/21/18 20:05 02:00 WBC RBC Hgb Hct MCV MCH MCHC RDW Plt Count MPV Neut % (Auto) Lymph % (Auto) Cata[place] % (Auto) Eos % (Auto) Baso % (Auto) Neut # (Auto) Lymph # (Auto) [place] # (Auto) Eos # (Auto) Baso # (Auto) PT INR APTT Sodium Potassium Chloride Carbon Dioxide Anion Gap BUN Creatinine Est GFR ( Amer) Est GFR (Non-Af Amer) Random Glucose Calcium Total Bilirubin AST ALT Alkaline Phosphatase Total Creatine Kinase 106 71 CK-MB (Mass) 0.60 0.61 Troponin I < 0.0120 < 0.0120 NT-Pro-B Natriuret Pep Total Protein Albumin Globulin Albumin/Globulin Ratio Assessment & Plan - Assessment and Plan (Free Text) Assessment: Angina, rule out ACS CAD COPD Plan: Angina, Rule out ACS HA1C 5.8 Troponin 11/20/18 negative x3 ECHO completed, follow up Medications ASA Coreg Lisinopril Crestor Pt seen, examined, assessment and plan discussed with Dr Gui Garcia PGY1 - Date & Time Date: 11/21/18 Time: 07:00
[2018-11-21] MEDS ORDERED: Pantoprazole 20 mg EC Tab PO SCH (10:00)
[2018-11-21] MEDS ORDERED: Pneumococcal 23-Valent Vaccine IM ONE (10:00)
[2018-11-21] MEDS: Pantoprazole 20 mg EC Tab PO SCH (10:05)
[2018-11-21] MEDS: Enoxaparin 40 mg Syringe SC SCH (10:06)
[2018-11-21 11:59] LABS: BASO % 0.5 % (0.0-2.0); EOS # 0.2 K/uL (0.0-0.7); EOS % 3.1 % (0.0-4.0); HEMOGLOBIN 15.5 g/dL (12.0-18.0); LYMPH # 1.6 K/uL (1.0-4.3); LYMPH % 24.1 % (20.0-40.0); MEAN CELL VOLUME 91.3 fL (80.0-94.0); MEAN CORPUSCULAR HEMOGLOBIN 30.2 pg (27.0-31.0); MEAN CORPUSCULAR HGB CONC 33.1 g/dL (33.0-37.0); MONO # 0.6 K/uL (0.0-0.8); MONO % 9.4 % (0.0-10.0); NEUT # 4.2 K/uL (1.8-7.0); NEUT % 62.9 % (50.0-75.0); NRBC % 0.1 % (0.0-2.0); RBC 5.11 Mil/uL (4.40-5.90); RED CELL DISTRIBUTION WIDTH 13.9 % (11.5-14.5); WHITE BLOOD COUNT 6.7 K/uL (4.8-10.8)
[2018-11-21 12:15] LABS: ALB/GLOB RATIO 1.8 (1.0-2.1); ALBUMIN 4.3 g/dL (3.5-5.0); ALT/SGPT 27 U/L (21-72); AST/SGOT 30 U/L (17-59); BLOOD UREA NITROGEN 13 mg/dL (9-20); CALCIUM 8.7 mg/dl (8.6-10.4); GFR NON-AFRICAN AMERICAN > 60
--- NOTE | 2018-11-21 20:39 | CP.PCM.HP ---
Present on Admission - Present on Admission Any Indicators Present on Admission: No Past Patient History - Infectious Disease Hx of Infectious Diseases: None - Past Medical History & Family History Past Medical History?: Yes - Past Social History Smoking Status: Light Smoker < 10 Cigarettes Daily - CARDIAC Hx Hypercholesterolemia: Yes Hx Pacemaker: Yes (LEFT CHEST WALL) - PULMONARY Hx Asthma: Yes Hx Chronic Obstructive Pulmonary Disease (COPD): Yes - NEUROLOGICAL Hx Seizures: Yes (JUVENILE) - HEENT Hx HEENT Problems: No Other/Comment: Wears reading glasses - ENDOCRINE/METABOLIC Hx Endocrine Disorders: No - HEMATOLOGICAL/ONCOLOGICAL Hx Blood Disorders: No - INTEGUMENTARY Hx Dermatological Problems: No - MUSCULOSKELETAL/RHEUMATOLOGICAL Hx Fractures: Yes - GASTROINTESTINAL Hx Gastrointestinal Disorders: Yes - GENITOURINARY/GYNECOLOGICAL Hx Genitourinary Disorders: No - PSYCHIATRIC Hx Substance Use: No - SURGICAL HISTORY Hx Appendectomy: Yes - ANESTHESIA Hx Anesthesia: Yes Hx Anesthesia Reactions: No Meds Allergies/Adverse Reactions: Allergies Allergy/AdvReac Type Severity Reaction Status Date / Time No Known Allergies Allergy Verified 11/20/18 11:10 Results - Vital Signs Recent Vital Signs: Last Vital Signs Temp 98.5 F 11/21/18 16:48 Pulse 78 11/21/18 20:00 Resp 20 11/21/18 16:48 BP 106/67 11/21/18 16:48 Pulse Ox 95 11/21/18 20:00 - Labs Result Diagrams: 11/21/18 11:29 11/21/18 11:29 Labs: Laboratory Results - last 24 hr 11/21/18 11/21/18 11/21/18 02:00 11:29 11:29 WBC 6.7 RBC 5.11 Hgb 15.5 Hct 46.7 MCV 91.3 MCH 30.2 MCHC 33.1 RDW 13.9 Plt Count 237 MPV 9.0 Neut % (Auto) 62.9 Lymph % (Auto) 24.1 [place] % (Auto) 9.4 Eos % (Auto) 3.1 Baso % (Auto) 0.5 Neut # (Auto) 4.2 Lymph # (Auto) 1.6 [place] # (Auto) 0.6 Eos # (Auto) 0.2 Baso # (Auto) 0.0 Sodium 135 Potassium 4.0 Chloride 101 Carbon Dioxide 27 Anion Gap 12 BUN 13 Creatinine 0.6 L Est GFR ( Amer) > 60 Est GFR (Non-Af Amer) > 60 Random Glucose 80 Hemoglobin A1c Calcium 8.7 Total Bilirubin 0.4 AST 30 ALT 27 Alkaline Phosphatase 63 Total Creatine Kinase 71 CK-MB (Mass) 0.61 Troponin I < 0.0120 Total Protein 6.7 Albumin 4.3 Globulin 2.4 Albumin/Globulin Ratio 1.8 11/21/18 11/21/18 11:29 19:59 WBC RBC Hgb Hct MCV MCH MCHC RDW Plt Count MPV Neut % (Auto) Lymph % (Auto) [place] % (Auto) Eos % (Auto) Baso % (Auto) Neut # (Auto) Lymph # (Auto) [place] # (Auto) Eos # (Auto) Baso # (Auto) Sodium Potassium Chloride Carbon Dioxide Anion Gap BUN Creatinine Est GFR ( Amer) Est GFR (Non-Af Amer) Random Glucose Hemoglobin A1c 5.8 Calcium Total Bilirubin AST ALT Alkaline Phosphatase Total Creatine Kinase 65 CK-MB (Mass) Troponin I Total Protein Albumin Globulin Albumin/Globulin Ratio
[2018-11-21 20:41] LABS: CK-MB 0.44 ng/mL (0.0-3.38)
--- NOTE | 2018-11-22 00:14 | CARD ---
APPROVED REPORT Date of service: 11/21/2018 EXAM: Two-dimensional and M-mode echocardiogram with Doppler and color Doppler. Other Information Quality : GoodRhythm : INDICATION Dyspnea Cardiac Disease: CAD Chest Pain Surgery/Intervention Pacemaker: RISK FACTORS Hyperlipidemia 2D DIMENSIONS IVSd1.1 (0.7-1.1cm)Aortic Root (2D)3.1 (2.0-3.7cm) LVDd4.2 (3.9-5.9cm)PWd1.0 (0.7-1.1cm) LA Iezvxi72 (18-58mL)LVDs2.2 (2.5-4.0cm) FS (%) 48.9 %LVEF (%)71.0 (>50%) LVEF ([place]'s)69.46 %IVC0.00 cm M-Mode DIMENSIONS RVDd2.26 (2.1-3.2cm)Left Atrium (MM)3.78 (2.5-4.0cm) IVSd0.73 (0.7-1.1cm)Aortic Root3.39 (2.2-3.7cm) LVDd5.24 (4.0-5.6cm)Aortic Cusp Exc.2.39 (1.5-2.0cm) PWd0.90 (0.7-1.1cm)FS (%) 28 % LVDs3.75 (2.0-3.8cm)TAPSE15.23 cm LVEF (%)68 (>50%) Mitral Valve MV E Wctqczde56.9cm/sMV A Ywblpqyb64.5cm/sE/A ratio1.3 TDI Lateral E' Peak V13.06cm/sMedial E' Peak V8.03cm/sE/Lateral E'6.1 E/Medial E'10.0 Tricuspid Valve TR Peak Vhgxafkr835ws/sTR Peak Gr.53wzPtDNHZ30ttOq LEFT VENTRICLE The left ventricle is normal size. There is normal left ventricular wall thickness. Left ventricle systolic function is normal. The Ejection Fraction is 65-70%. There is normal LV segmental wall motion. The left ventricular diastolic function is normal. RIGHT VENTRICLE The right ventricle is normal size. There is normal right ventricular wall thickness. The right ventricular systolic function is normal. ATRIA The left atrium size is normal. The right atrium size is normal. The interatrial septum is intact with no evidence for an atrial septal defect. AORTIC VALVE The aortic valve is normal in structure. No aortic regurgitation is present. There is no aortic valvular stenosis. There is no aortic valvular vegetation. MITRAL VALVE The mitral valve is normal in structure. There is no evidence of mitral valve prolapse. There is no mitral valve stenosis. Mitral regurgitation is mild. TRICUSPID VALVE The tricuspid valve is normal in structure. There is mild tricuspid regurgitation. Right ventricular systolic pressure is estimated at less than 30 mmHg. There is no pulmonary hypertension. PULMONIC VALVE The pulmonic valve is not well visualized. There is no pulmonic valvular regurgitation. GREAT VESSELS The aortic root is normal in size. PERICARDIAL EFFUSION There is no signioficant pericardial effusion. <Conclusion> Left ventricle systolic function is normal. The Ejection Fraction is 65-70%. No aortic regurgitation is present. Mitral regurgitation is mild. There is mild tricuspid regurgitation. There is no pulmonary hypertension. There is no pulmonic valvular regurgitation.
--- NOTE | 2018-11-22 04:18 | HP ---
CHIEF COMPLAINT: Chest pain. HISTORY OF PRESENT ILLNESS: This is a 48-year-old male with history of heart block with permanent pacemaker placement being followed up by Dr. Browning, who is still compliant with diet, medication, and followup. According to Dr. Browning, 5 months ago, he had a stress done, which was negative. The patient denies smoking. Hypertension, hyperlipidemia, and diabetes. Since last night, he is having midsternal chest pain with diffuse abdominal pain. According to the patient, this chest pain is associated with dyspnea on exertion and the pain is intermittent. It is not radiating to the left arm. There is no cough, pleurisy, or dyspepsia. There is no nausea, vomiting, diarrhea. There is no history of hematemesis, melena or hematochezia. He denies any history of hemoptysis. He denies any cough or sore throat. He denies any history of dizziness or vertigo. He denies any history of trauma, fall, loss of consciousness. He denies any history of seizure disorder. He has asthma but he denies any coughing or wheezing. There is no history of sneezing, itchy eyes, itchy nose. PAST MEDICAL HISTORY: Asthma, coronary artery disease, hypertension, fractures, gastric ulcer, hyperlipidemia, juvenile seizure, status post appendectomy, and a pacemaker 18 years ago. SOCIAL HISTORY: Nonsmoker, non-EtOH user. CURRENT MEDICATIONS: At home he is on Zocor, Singulair, Antivert, Zestril, Motrin, Pepcid, Nexium, Flexeril, Coreg, aspirin, Combivent, and Ventolin. PAST MEDICAL HISTORY: As above. PHYSICAL EXAMINATION: GENERAL: A middle-aged male, in no acute distress. VITAL SIGNS: Blood pressure 106/67, pulse 67, respiratory rate 20, and temperature 98.5. SKIN: Warm. Senile turgor. No bruises. No purpura. No petechiae. No ecchymosis. HEENT: Atraumatic, normocephalic. Negative pallor. Negative jaundice. Extraocular movements are intact. NECK: Supple. No JVD. No lymph node. No thyromegaly. CHEST WALL: Bilateral symmetrical expansion. LUNGS: Bilaterally clear. No rales. No rhonchi. CVS: PMI not localized. S1, S2, regular. No heave. No thrill. There is a pacemaker in the left infraclavicular, postsurgical scar is clean. ABDOMEN: Soft, nontender. Bowel sounds are positive. RECTAL: Negative. EXTREMITIES: No clubbing, cyanosis, or edema. PRODUCTION STAFF WORKER: Awake, alert, and oriented x3. ASSESSMENT: 1. Chest pain, rule out myocardial infarction. 2. Heart block, status post permanent pacemaker placement. 3. Hyperlipidemia. 4. Bronchial asthma. PLAN: Admit. Detailed orders are written. Seen and examined. Darius Powers MD
[2018-11-22] MEDS ORDERED: Nitroglycerin 50mg in D5W 50 MG/250 ML BOTTLE IV ONE (09:03)
[2018-11-22] MEDS ORDERED: Verapamil 2 ML ONE (09:03)
[2018-11-22] MEDS ORDERED: Midazolam 2 MG/2 ML VIAL ONE (09:05)
[2018-11-22] MEDS ORDERED: Iodixanol 320 MG/ML 200 ML BOTTLE IV ONE (09:16)
[2018-11-22] MEDS ORDERED: Iodixanol 320 MG/ML 100 ML BOTTLE IV ONE (09:16)
[2018-11-22] MEDS: Enoxaparin 40 mg Syringe SC SCH (10:45)
[2018-11-22] MEDS ORDERED: Influenza Vaccine 60 mcg/0.5 mL SYR (4YR UP) IM ONE (12:00)
--- NOTE | 2018-11-22 12:46 | CP.PCM.PN ---
Subjective - Date & Time of Evaluation Date of Evaluation: 11/22/18 Time of Evaluation: 09:00 - Subjective Subjective: Pt seen and examined before cardiac cath. Pt has no new complaints at this time. Objective - Vital Signs/Intake and Output Vital Signs (last 24 hours): Temp Pulse Resp BP Pulse Ox 98 F 65 20 104/71 96 11/22/18 07:30 11/22/18 07:30 11/22/18 07:30 11/22/18 07:30 11/22/18 07:30 - Medications Medications: Current Medications Albuterol (Ventolin Hfa 90 Mcg/Actuation (8 G)) 1 puff INH RQ6 PRN PRN Reason: Shortness of Breath Aspirin (Ecotrin) 81 mg PO DAILY [facility] Last Admin: 11/21/18 10:06 Dose: 81 mg Carvedilol (Coreg) 3.125 mg PO Q12H [facility] Last Admin: 11/22/18 05:52 Dose: 3.125 mg Clopidogrel Bisulfate (Plavix) 75 mg PO DAILY [facility] Cyclobenzaprine HCl (Flexeril) 10 mg PO Q8 PRN PRN Reason: Muscle spasm Enoxaparin Sodium (Lovenox) 40 mg SC DAILY [facility] Last Admin: 11/22/18 10:45 Dose: Not Given Famotidine (Pepcid) 20 mg PO BID [facility] Last Admin: 11/22/18 10:45 Dose: Not Given Ibuprofen (Motrin Tab) 600 mg PO Q6 PRN PRN Reason: Pain, moderate (4-7) Lisinopril (Zestril) 5 mg PO DAILY [facility] Last Admin: 11/21/18 10:05 Dose: 5 mg Meclizine HCl (Antivert) 25 mg PO TID PRN PRN Reason: Dizziness Montelukast Sodium (Singulair) 10 mg PO HS [facility] Last Admin: 11/21/18 21:04 Dose: 10 mg Pantoprazole Sodium (Protonix Ec Tab) 20 mg PO DAILY [facility] Last Admin: 11/21/18 10:05 Dose: 20 mg Rosuvastatin Calcium (Crestor) 5 mg PO HS [facility] Last Admin: 11/21/18 21:04 Dose: 5 mg - Labs Labs: 11/21/18 11:29 11/21/18 11:29 PT 11.2 SECONDS (9.7-12.2) 11/20/18 11:55 INR 1.0 11/20/18 11:55 APTT 32 SECONDS (21-34) 11/20/18 11:55 - Constitutional Appears: No Acute Distress - Head Exam Head Exam: ATRAUMATIC, NORMOCEPHALIC - Eye Exam Eye Exam: EOMI - ENT Exam ENT Exam: Mucous Membranes Moist - Neck Exam Neck Exam: Full ROM - Respiratory Exam Respiratory Exam: Clear to Ausculation Bilateral, NORMAL BREATHING PATTERN. absent: Accessory Muscle Use, Respiratory Distress - Cardiovascular Exam Cardiovascular Exam: RRR, +S1, +S2. absent: Diastolic murmur - GI/Abdominal Exam GI & Abdominal Exam: Soft, Normal Bowel Sounds - Extremities Exam Extremities Exam: Full ROM. absent: Calf Tenderness, Pedal Edema - Neurological Exam Neurological Exam: Alert, Awake, Oriented x3 - Psychiatric Exam Psychiatric exam: Normal Affect, Normal Mood - Skin Skin Exam: Dry, Normal Color, Warm Assessment and Plan - Assessment and Plan (Free Text) Assessment: CAD Angina CAD COPD Plan: CAD, Angina, Rule out ACS HA1C 5.8 Troponin 11/20/18 negative x3 ECHO 11/20/18 EF 65-70%, mild MR Cath 11/22/18 shows proximal lesion in the LAD 95% stenosis, no stent was placed pt to be transferred to [place] for possible CABG Medications ASA Coreg Lisinopril Crestor Pt seen, examined, assessment and plan discussed with Dr Gui Garcia PGY1
[2018-11-22] MEDS: Pantoprazole 20 mg EC Tab PO SCH (13:49)
--- NOTE | 2018-11-22 21:18 | CARDCATH ---
PROCEDURE DATE: 11/22/2018 INDICATIONS: Mr. Chua is a 48-year-old male, who presented to [facility] with complaints of chest pain, pressure-like sensation, unstable angina. The patient has history of ICD placed 8 years ago. The patient was therefore brought to the laborer bit[facility] paving for evaluation of unstable angina. PROCEDURE PERFORMED: Left heart catheterization with selective left and right coronary angiogram, left ventriculogram, 6 [place] left radial arterial access, wrist band for hemostasis. ANGIOGRAPHIC FINDINGS: The left main is a large-sized vessel that bifurcates into left anterior descending and left circumflex coronary artery. The left circumflex is a large-sized vessel and runs in the AV groove, free of any obstructive disease, it gives off two medium-sized obtuse marginal branches, codominant circulation. Left anterior descending has a proximal 95% stenosis and ostial 80% stenosis. It gives off two medium-sized diagonal branches. Right coronary artery large-sized vessel free of any obstructive disease, has proximal nonobstructive 40% stenosis. IMPRESSION: Severe ostial left anterior descending and proximal left anterior descending high-grade stenosis, normal ejection fraction, ejection fraction is 55% to 60%, end-diastolic pressure of 16. RECOMMENDATION: Discussed with the patient, would benefit from minimally invasive GERMAN to LAD. We will arrange for the patient to undergo transfer for MIDCAB procedure, considering hemoglobin of 6.1, smoker and somewhat questionable compliance issues. We will arrange the patient to be transferred to [place] for minimally invasive bypass GERMAN to LAD. Alok Messer MD
--- NOTE | 2018-11-22 21:42 | CP.PCM.PN ---
Subjective - Date & Time of Evaluation Date of Evaluation: 11/22/18 Time of Evaluation: 08:00 - Subjective Subjective: dictated Objective - Vital Signs/Intake and Output Vital Signs (last 24 hours): Temp Pulse Resp BP Pulse Ox 98 F 67 20 112/72 96 11/22/18 07:30 11/22/18 17:44 11/22/18 17:44 11/22/18 17:44 11/22/18 17:44 - Medications Medications: Current Medications Albuterol (Ventolin Hfa 90 Mcg/Actuation (8 G)) 1 puff INH RQ6 PRN PRN Reason: Shortness of Breath Aspirin (Ecotrin) 81 mg PO DAILY [facility] Last Admin: 11/22/18 13:48 Dose: 81 mg Carvedilol (Coreg) 3.125 mg PO Q12H [facility] Last Admin: 11/22/18 17:46 Dose: 3.125 mg Clopidogrel Bisulfate (Plavix) 75 mg PO DAILY [facility] Last Admin: 11/22/18 13:49 Dose: 75 mg Cyclobenzaprine HCl (Flexeril) 10 mg PO Q8 PRN PRN Reason: Muscle spasm Enoxaparin Sodium (Lovenox) 40 mg SC DAILY [facility] Last Admin: 11/22/18 10:45 Dose: Not Given Famotidine (Pepcid) 20 mg PO BID [facility] Last Admin: 11/22/18 10:45 Dose: Not Given Ibuprofen (Motrin Tab) 600 mg PO Q6 PRN PRN Reason: Pain, moderate (4-7) Lisinopril (Zestril) 5 mg PO DAILY [facility] Last Admin: 11/22/18 13:48 Dose: 5 mg Meclizine HCl (Antivert) 25 mg PO TID PRN PRN Reason: Dizziness Montelukast Sodium (Singulair) 10 mg PO HS [facility] Last Admin: 11/21/18 21:04 Dose: 10 mg Pantoprazole Sodium (Protonix Ec Tab) 20 mg PO DAILY [facility] Last Admin: 11/22/18 13:49 Dose: 20 mg Rosuvastatin Calcium (Crestor) 5 mg PO HS [facility] Last Admin: 11/21/18 21:04 Dose: 5 mg - Labs Labs: 11/21/18 11:29 11/21/18 11:29 PT 11.2 SECONDS (9.7-12.2) 11/20/18 11:55 INR 1.0 11/20/18 11:55 APTT 32 SECONDS (21-34) 11/20/18 11:55
--- NOTE | 2018-11-23 | CARD ---
APPROVED REPORT Date of service: 11/20/2018 EKG Measurement Heart [id number] <Conclusion> Normal sinus rhythm Cannot rule out Anterior infarct, age undetermined Abnormal ECG
[2018-11-23 01:07] VITALS: TEMP 97.9
--- NOTE | 2018-11-23 02:43 | PN ---
DATE: 11/22/2018 SUBJECTIVE: The patient is feeling better. He is for cardiac cath. His cardiac cath showed single-vessel disease. The patient is afebrile. No shortness of breath. chest pain. PHYSICAL EXAMINATION: VITAL SIGNS: Blood pressure 110/72, pulse 67, respiratory rate 20, and temperature 98. LUNGS: Clear. No rale. No rhonchi. CARDIOVASCULAR SYSTEM: S1, S2, regular. ABDOMEN: Soft, nontender. Bowel sounds are positive. ASSESSMENT: 1. Pulmonary artery disease. 2. Hypertension. 3. Hyperlipidemia. PLAN: As per Cardiology, monitor the patient. Darius Powers MD
[2018-11-23 08:03] VITALS: BP 108/67; PULSE 60; RESP 18; O2SAT 94
--- NOTE | 2018-11-23 09:38 | PCM.HF ---
Heart Failure Core Measure - Heart Failure Ejection Fraction: 40 % or Greater JALYN Inhibitor Prescribed: Yes Beta-Kaitlin Prescribed: Carvedilol Angiotensin II Receptor Kaitlin Prescribed: No Contraindication/Reason for not providing: on jalyn AnticoagulationTherapy for Atrial Fibrillation/Atrialflutter: No Contraindication/Reason for not providing: no hx of a fib Aldosterone Antagonist Prescribed: No Contraindication/Reason for not providing: ef>45 Hydralazine Nitrate Prescribed: No Contraindication/Reason for not providing: ef>45 Implantable Cardioverter Defibrillator Therapy: No Contraindication/Reason for not providing: pt has pacemake r Cardiac Resynchronization Therapy Prescribed: No Contraindication/Reason for not providing: ef>45 - Follow up Will be discharged to: [facility] (transferred [facility] for procedure) Follow Up Date (must be within 7 days from discharge): 11/23/18 Follow Up Time: 17:00
[2018-11-23] MEDS: Pantoprazole 20 mg EC Tab PO SCH (09:47)
[2018-11-23] MEDS: Enoxaparin 40 mg Syringe SC SCH (09:47)
--- NOTE | 2018-11-23 13:34 | CP.PCM.PN ---
Subjective - Date & Time of Evaluation Date of Evaluation: 11/23/18 Time of Evaluation: 07:00 - Subjective Subjective: Pt seen and examined this morning at bedside. Pt has no complaints at this time. Objective - Vital Signs/Intake and Output Vital Signs (last 24 hours): Temp Pulse Resp BP Pulse Ox 97.9 F 60 18 108/67 94 L 11/23/18 07:10 11/23/18 07:10 11/23/18 07:10 11/23/18 07:10 11/23/18 07:10 Intake and Output: 11/23/18 11/23/18 06:59 18:59 Intake Total 600 Balance 600 - Labs Labs: 11/21/18 11:29 11/21/18 11:29 PT 11.2 SECONDS (9.7-12.2) 11/20/18 11:55 INR 1.0 11/20/18 11:55 APTT 32 SECONDS (21-34) 11/20/18 11:55 - Constitutional Appears: No Acute Distress - Head Exam Head Exam: ATRAUMATIC, NORMOCEPHALIC - Eye Exam Eye Exam: EOMI - ENT Exam ENT Exam: Mucous Membranes Moist - Neck Exam Neck Exam: Full ROM - Respiratory Exam Respiratory Exam: Clear to Ausculation Bilateral, NORMAL BREATHING PATTERN. absent: Accessory Muscle Use - Cardiovascular Exam Cardiovascular Exam: RRR, +S1, +S2 - GI/Abdominal Exam GI & Abdominal Exam: Soft, Normal Bowel Sounds (e). absent: Tenderness - Extremities Exam Extremities Exam: Full ROM. absent: Calf Tenderness, Pedal Edema, Tenderness - Neurological Exam Neurological Exam: Alert, Awake, Oriented x3 - Psychiatric Exam Psychiatric exam: Normal Affect, Normal Mood - Skin Skin Exam: Dry, Intact, Normal Color Assessment and Plan - Assessment and Plan (Free Text) Assessment: CAD Angina CAD COPD Plan: CAD, Angina, Rule out ACS HA1C 5.8 Troponin 11/20/18 negative x3 ECHO 11/20/18 EF 65-70%, mild MR Cath 11/22/18 shows proximal lesion in the LAD 95% stenosis, no stent was placed severe ostial left anterior descending and proximal left anterior descending high grade stenosis, EF 55-60%, end diastolic pressure 16 pt to be transferred to [place] for possible CABG Medications ASA Coreg Lisinopril Crestor Pt seen, examined, assessment and plan discussed with Dr Gui Garcia PGY1, Internal Medicine Resident
--- NOTE | 2018-11-23 20:49 | CP.PCM.DIS ---
Provider - Provider Date of Admission: 11/20/18 15:17 Attending physician: Darius Powers MD Consults: 11/20/18 21:06 Cardiology Consult Routine Comment: Consulting Provider: Alok Messer Consulting Physician: Alok Messer Reason for Consult: chest pain Time Spent in preparation of Discharge (in minutes): 30 Hospital Course - Lab Results Lab Results: Most Recent Lab Values WBC 6.7 K/uL (4.8-10.8) 11/21/18 11:29 RBC 5.11 Mil/uL (4.40-5.90) 11/21/18 11:29 Hgb 15.5 g/dL (12.0-18.0) 11/21/18 11:29 Hct 46.7 % (35.0-51.0) 11/21/18 11:29 MCV 91.3 fL (80.0-94.0) 11/21/18 11:29 MCH 30.2 pg (27.0-31.0) 11/21/18 11:29 MCHC 33.1 g/dL (33.0-37.0) 11/21/18 11:29 RDW 13.9 % (11.5-14.5) 11/21/18 11:29 Plt Count 237 K/uL (130-400) 11/21/18 11:29 MPV 9.0 fL (7.2-11.7) 11/21/18 11:29 Neut % (Auto) 62.9 % (50.0-75.0) 11/21/18 11:29 Lymph % (Auto) 24.1 % (20.0-40.0) 11/21/18 11:29 [place] % (Auto) 9.4 % (0.0-10.0) 11/21/18 11:29 Eos % (Auto) 3.1 % (0.0-4.0) 11/21/18 11:29 Baso % (Auto) 0.5 % (0.0-2.0) 11/21/18 11:29 Neut # (Auto) 4.2 K/uL (1.8-7.0) 11/21/18 11:29 Lymph # (Auto) 1.6 K/uL (1.0-4.3) 11/21/18 11:29 [place] # (Auto) 0.6 K/uL (0.0-0.8) 11/21/18 11:29 Eos # (Auto) 0.2 K/uL (0.0-0.7) 11/21/18 11:29 Baso # (Auto) 0.0 K/uL (0.0-0.2) 11/21/18 11:29 PT 11.2 SECONDS (9.7-12.2) 11/20/18 11:55 INR 1.0 11/20/18 11:55 APTT 32 SECONDS (21-34) 11/20/18 11:55 Sodium 135 mmol/L (132-148) 11/21/18 11:29 Potassium 4.0 mmol/L (3.6-5.2) 11/21/18 11:29 Chloride 101 mmol/L (98-107) 11/21/18 11:29 Carbon Dioxide 27 mmol/L (22-30) 11/21/18 11:29 Anion Gap 12 (10-20) 11/21/18 11:29 BUN 13 mg/dL (9-20) 11/21/18 11:29 Creatinine 0.6 mg/dL (0.8-1.5) L 11/21/18 11:29 Est GFR ( Amer) > 60 11/21/18 11:29 Est GFR (Non-Af Amer) > 60 11/21/18 11:29 Random Glucose 80 mg/dL (75-110) 11/21/18 11:29 Hemoglobin A1c 5.8 % (4.2-6.5) 11/21/18 11:29 Calcium 8.7 mg/dl (8.6-10.4) 11/21/18 11:29 Total Bilirubin 0.4 mg/dL (0.2-1.3) 11/21/18 11:29 AST 30 U/L (17-59) 11/21/18 11:29 ALT 27 U/L (21-72) 11/21/18 11:29 Alkaline Phosphatase 63 U/L (38-126) 11/21/18 11:29 Total Creatine Kinase 65 U/L (55-170) 11/21/18 19:59 CK-MB (Mass) 0.44 ng/mL (0.0-3.38) 11/21/18 19:59 Troponin I < 0.0120 ng/mL (0.00-0.120) 11/21/18 19:59 NT-Pro-B Natriuret Pep 111 pg/mL (0-900) 11/20/18 11:55 Total Protein 6.7 g/dL (6.3-8.3) 11/21/18 11:29 Albumin 4.3 g/dL (3.5-5.0) 11/21/18 11:29 Globulin 2.4 gm/dL (2.2-3.9) 11/21/18 11:29 Albumin/Globulin Ratio 1.8 (1.0-2.1) 11/21/18 11:29 Discharge Exam - Head Exam Head Exam: ATRAUMATIC, NORMOCEPHALIC Discharge Plan - Follow Up Plan Condition: STABLE Disposition: HOME/ ROUTINE
--- NOTE | 2018-11-24 02:21 | DS ---
DISCHARGE DIAGNOSES: 1. Coronary artery disease. 2. Hypertension. 3. Hyperlipidemia. 4. Heart block. HOSPITAL COURSE: This is a 48-year-old pleasant male with history of heart block, hypertension, hyperlipidemia, came in with chest pain. He was found to have single-vessel disease, and he is being transferred to [facility] for bypass. Afebrile. No shortness of breath. He was seen by Cardiology. CONDITION UPON DISCHARGE: Stable. Darius Powers MD
== END 2018-11-23 11:00 | disposition home or self-care (01) ==
LOC: C.ER 11:01 → C.9E 15:17 → C.6T 16:05
PROVIDERS: ADMIT Internal Medicine; ATTEND Internal Medicine
DX: I25.110 Atherosclerotic heart disease of native coronary artery with unstable angina pectoris (principal); E78.5 Hyperlipidemia, unspecified; I10 Essential (primary) hypertension; I45.9 Conduction disorder, unspecified; J44.9 Chronic obstructive pulmonary disease, unspecified; Z72.0 Tobacco use; Z87.11 Personal history of peptic ulcer disease; Z95.0 Presence of cardiac pacemaker
CPT/HCPCS: 36415; 71045; 74177; 80053; 83036; 83880; 84484; 85025; 85610; 85730; 93005; 93306; 93458; 96374; 99152; 99153; 99285; C1758; C1769; C1887; C1894; G0378; J1644; J1650; J2250; J2270; J2405; J3010; Q9966; Q9967

== ENCOUNTER 2019-02-09 07:54 | Emergency (ER) | payer MEDICARE, OTHER ==
[2019-02-09 07:54] VITALS: BMI 28.4
[2019-02-09 08:19] VITALS: BP 125/87; PULSE 78; RESP 18; TEMP 97.4; O2SAT 98
--- NOTE | 2019-02-09 08:34 | C.PDOC ---
History Of Present Illness Patient is a 48 year old male who presents to the ED c/o sore throat for the past 5 to 6 days. He denies any CP, SOB, fever, chills, nausea, vomiting, or diarrhea. Time Seen by Provider: 02/09/19 08:02 Chief Complaint (Nursing): ENT Problem History Per: Patient History/Exam Limitations: None Onset/Duration Of Symptoms: Days (6) Current Symptoms Are (Timing): Still Present Quality (Mouth/Throat): Tenderness Past Medical History Reviewed: Historical Data, Nursing Documentation, Vital Signs Vital Signs: Last Vital Signs Temp 97.4 F L 02/09/19 07:59 Pulse 78 02/09/19 07:59 Resp 18 02/09/19 07:59 BP 125/87 02/09/19 07:59 Pulse Ox 98 02/09/19 07:59 Primary Care Provider: FAMILY PROVIDER,NO - Medical History PMH: Asthma, CAD, COPD, Fractures, Gastrointestinal Ulcer, Hypercholesterolemia, Seizures (JUVENILE) Surgical History: Appendectomy, Pacemaker (LEFT CHEST WALL) Family History: States: Unknown Family Hx - Social History Hx Tobacco Use: Yes Hx Alcohol Use: No Hx Substance Use: No - Immunization History Hx Tetanus Toxoid Vaccination: No Hx Influenza Vaccination: No Hx Pneumococcal Vaccination: No Review Of Systems Except As Marked, All Systems Reviewed And Found Negative. Constitutional: Negative for: Fever, Chills ENT: Positive for: Throat Pain Cardiovascular: Negative for: Chest Pain Respiratory: Negative for: Cough, Shortness of Breath Gastrointestinal: Negative for: Nausea, Vomiting, Diarrhea Physical Exam - Physical Exam Appears: Non-toxic, No Acute Distress, Other (speaking in full sentences, not ho arse) Skin: Normal Color, Warm, Dry Head: Atraumatic, Normacephalic Oral Mucosa: Moist Throat: Normal, No Erythema, No Exudate Neck: Normal ROM, Supple Chest: Symmetrical, No Deformity Cardiovascular: Rhythm Regular, No Murmur Respiratory: Normal Breath Sounds, No Rales, No Rhonchi, No Wheezing Gastrointestinal/Abdominal: Soft, No Tenderness Neurological/Psych: Oriented x3, Normal Speech ED Course And Treatment O2 Sat by Pulse Oximetry: 98 (on RA) Pulse Ox Interpretation: Normal Progress Note: Patient was given Motrin and a throat spray to go home. Stable for discharge. Disposition - Disposition Disposition: HOME/ ROUTINE Disposition Time: 08:31 Condition: STABLE Additional Instructions: Follow up with your PMD within 1-2 days. Return to ED if feel worse. Prescriptions: Phenol/Glycerin [Chloraseptic Max [place]] 30 ml MM QID #1 spray Ibuprofen [Motrin Tab] 600 mg PO Q8 #30 tab Instructions: Viral Pharyngitis (DC) Forms: [employer] (Paraguayan), Work Excuse Print Language: POLISH - Clinical Impression Clinical Impression: Pharyngitis - PA / LOGISTIC MANAGER / Resident Statement MD/DO has examined the patient and agrees with the treatment plan. - Scribe Statement The provider has reviewed the documentation as recorded by the Rosalind Trevino All medical record entries made by the Rosalind were at my direction and personally dictated by me. I have reviewed the chart and agree that the record accurately reflects my personal performance of the history, physical exam, medical decision making, and the department course for this patient. I have also personally directed, reviewed, and agree with the discharge instructions and disposition.
== END 2019-02-09 08:39 | disposition home or self-care (01) ==
LOC: C.ER 07:54
DX: J02.9 Acute pharyngitis, unspecified (principal); E78.00 Pure hypercholesterolemia, unspecified; I25.10 Atherosclerotic heart disease of native coronary artery without angina pectoris; J44.9 Chronic obstructive pulmonary disease, unspecified; Z72.0 Tobacco use; Z95.0 Presence of cardiac pacemaker